=== PATIENT | male | born 2005 | race Asian ===

== ENCOUNTER 2025-05-01 13:21 | Emergency (ER) | payer BC ==
[2025-05-01] MEDS: Bacitracin Oint 1 GM U/D Packet TOP ONE (13:44)
[2025-05-01] MEDS: Diphtheria,Pertussis(Acell),Tetanus Vaccine 0.5 ML Syringe IM ONE (14:40)
[2025-05-01] MEDS: Acetaminophen/HYDROcodone 325-5 MG Tab PO ONE (14:46)
== END 2025-05-01 14:58 | disposition home or self-care (01) ==
LOC: CC.ED 13:21
DX: S62.630A Displaced fracture of distal phalanx of right index finger, initial encounter for closed fracture (principal); T23.121A Burn of first degree of single right finger (nail) except thumb, initial encounter; Z23 Encounter for immunization; X58.XXXA Exposure to other specified factors, initial encounter
CPT/HCPCS: 12002; 26755; 73140-F6; 90471; 90715; 99283; 99283-25; A9270-GY; J2003